=== PATIENT | male | born 1940 | race Caucasian/White ===

== ENCOUNTER 2020-09-01 07:28 | Outpatient (CLI) | payer OTHER, MEDICARE ==
[2020-09-01 08:19] LABS: Estimated GFR-MDRD - POC Greater than 90
== END 2020-09-01 07:29 | disposition home or self-care (01) ==
LOC: CSHNM 07:28
PROVIDERS: ATTEND Urology
DX: C61 Malignant neoplasm of prostate (principal); M19.90 Unspecified osteoarthritis, unspecified site; M47.819 Spondylosis without myelopathy or radiculopathy, site unspecified; R93.7 Abnormal findings on diagnostic imaging of other parts of musculoskeletal system; N32.89 Other specified disorders of bladder; Z90.49 Acquired absence of other specified parts of digestive tract; K57.30 Diverticulosis of large intestine without perforation or abscess without bleeding; K43.9 Ventral hernia without obstruction or gangrene
CPT/HCPCS: 74178; 78306; 82565; A9503

== ENCOUNTER 2022-04-13 10:15 | Outpatient (CLI) | payer OTHER | END 2022-04-13 10:16 | disposition home or self-care (01) | LOC: CSHCT 10:15 | PROVIDERS: ATTEND Urology | DX: R93.7 Abnormal findings on diagnostic imaging of other parts of musculoskeletal system (principal); M89.58 Osteolysis, other site | CPT/HCPCS: 71260; 82565 ==

== ENCOUNTER → 2022-08-08 | Emergency (ER) | payer OTHER, MEDICARE ==
[~2022-08-08] MED LIST: Ondansetron PF 4 MG/2 ML Vial ONE
[2022-08-08 14:36] LABS: #Basophils 0.1 10x3/uL (0.0-0.2); #Eosinphils 0.2 10x3/uL (0.0-0.5); #Monocytes 0.7 10x3/uL (0.0-1.1); #Neutrophils 6.4 10x3/uL (1.5-8.4); %Basophils 0.8 % (0.0-2.0); %Eosinophils 1.7 % (0.0-6.0); %Lymphocytes 19.3 % (18.0-47.0); %Monocytes 7.8 % (0.0-10.0); %Neutrophils 69.8 % (40.0-75.0); Hemoglobin 12.2 g/dL (13.5-17.5); Mean Corpuscular Hemoglobin 31.2 pg (27.0-33.0); Mean Corpuscular Volume 89.3 fl (81.2-95.1); Mean Platelet Volume 9.3 fl (7.4-10.4); Platelet Count 243 10x3/uL (150-450); RBC Distribution Width 12.5 % (11.5-14.5); Red Blood Cell (RBC) Count 3.91 10x6/uL (4.32-5.72); White Blood Cell (WBC) Count 9.1 10x3/uL (3.5-10.5)
[2022-08-08 14:43] LABS: ALT (SGPT) 21 U/L (8-55); AST (SGOT) 23 U/L (5-34); Albumin 3.9 g/dL (3.4-4.8); Alkaline Phosphatase 74 U/L (40-110); Anion Gap 14 mmol/L (10-20); BUN (Urea Nitrogen) 18 mg/dL (8.4-25.7); Bilirubin, Total 0.4 mg/dL (0.2-1.2); Calc. Creatinine Clearance 0 mL/min (70-130); Calcium 9.3 mg/dL (7.8-10.44); Carbon Dioxide 24 mmol/L (23-31); Chloride 100 mmol/L (98-107); Estimated GFR 88; Globulin 2.7 g/dL (2.4-3.5); Glucose 175 mg/dL (83-110); Potassium 4.3 mmol/L (3.5-5.1); Protein, Total 6.6 g/dL (5.8-8.1); Sodium 134 mmol/L (136-145)
== END ==
LOC: CSHERS 13:31
DX: S72.142A Displaced intertrochanteric fracture of left femur, initial encounter for closed fracture (principal); I10 Essential (primary) hypertension; J44.9 Chronic obstructive pulmonary disease, unspecified; E11.9 Type 2 diabetes mellitus without complications; W10.9XXA Fall (on) (from) unspecified stairs and steps, initial encounter; Z79.84 Long term (current) use of oral hypoglycemic drugs
CPT/HCPCS: 36415; 72170; 80053; 84153; 85025; 93005; 96374; J2405

== ENCOUNTER 2022-08-17 10:19 | Inpatient (IN) | payer OTHER ==
[2022-08-17 11:12] LABS: #Monocytes 1.2 10x3/uL (0.0-1.1); #Neutrophils 9.4 10x3/uL (1.5-8.4); %Basophils 0.2 % (0.0-2.0); %Eosinophils 0.2 % (0.0-6.0); %Lymphocytes 11.7 % (18.0-47.0); %Monocytes 10.2 % (0.0-10.0); %Neutrophils 77.2 % (40.0-75.0); Mean Corpuscular HGB CONC 33.6 g/dL (32.0-36.0); Mean Corpuscular Hemoglobin 31.1 pg (27.0-33.0); Mean Corpuscular Volume 92.7 fl (81.2-95.1); Mean Platelet Volume 9.4 fl (7.4-10.4); Platelet Count 412 10x3/uL (150-450); RBC Distribution Width 14.3 % (11.5-14.5); Red Blood Cell (RBC) Count 2.89 10x6/uL (4.32-5.72); White Blood Cell (WBC) Count 12.2 10x3/uL (3.5-10.5)
[2022-08-17] MEDS ORDERED: Piperacillin/Tazobactam 4.5 GM VIAL ONE (11:25)
[2022-08-17 11:52] LABS: Magnesium 2.2 mg/dL (1.6-2.6)
[2022-08-17 11:53] LABS: ALT (SGPT) 38 U/L (8-55); AST (SGOT) 71 U/L (5-34); Albumin 3.6 g/dL (3.4-4.8); Alkaline Phosphatase 82 U/L (40-110); Anion Gap 18 mmol/L (10-20); BUN (Urea Nitrogen) 50 mg/dL (8.4-25.7); Bilirubin, Total 1.4 mg/dL (0.2-1.2); Calc. Creatinine Clearance 0 mL/min (70-130); Calcium 9.3 mg/dL (7.8-10.44); Carbon Dioxide 22 mmol/L (23-31); Chloride 99 mmol/L (98-107); Estimated GFR 62; Globulin 3.1 g/dL (2.4-3.5); Glucose 142 mg/dL (83-110); Potassium 4.8 mmol/L (3.5-5.1); Protein, Total 6.7 g/dL (5.8-8.1); Sodium 134 mmol/L (136-145)
[2022-08-17 12:27] LABS: Bilirubin Neg (Negative); Blood, Urine Negative (Negative); Clarity Cloudy (Clear); Glucose, Urine (Dipstick) Normal (Negative); Ketone, Urine 5 mg/dL (Negative); Leukocyte 25 (Negative); Nitrite Negative (Negative); Protein, Urine (Dipstick) 15 mg/dl (Neg-Trace); Specific Gravity, Urine 1.015 (1.005-1.030)
[2022-08-17 12:28] LABS: SARS-CoV-2 NAA Rapid Test Not Detected (NotDetected)
[2022-08-17 13:23] LABS: Bacteria/HPF None Seen HPF (None Seen); Mucous/LPF 1+ LPF (<2+); RBC/HPF 0-3 HPF (0-3); Squamous Epithelial 0-3 HPF (0-3)
[2022-08-17] MEDS ORDERED: Lorazepam 2 MG/ML VIAL ONE (13:46)
[2022-08-17] MEDS ORDERED: Haloperidol Lactate 5 MG/ML VIAL ONE (14:05)
[2022-08-17] MEDS ORDERED: diphenhydrAMINE 50 MG/ML VIAL ONE (14:07)
[2022-08-17] MEDS ORDERED: Dextrose 5% in Water 1,000 ML IV PRN (18:41)
[2022-08-17] MEDS ORDERED: Dextrose 50% Abboject 50 ML SYRINGE SLOW IVP PRN (18:41)
[2022-08-17] MEDS ORDERED: Ondansetron PF 4 MG/2 ML Vial IVP PRN (19:25)
[2022-08-17] MEDS ORDERED: Guaifenesin DM 100-10/5 ML UDCUP PO PRN (19:25)
[2022-08-17] MEDS ORDERED: Senokot S 8.6-50 MG TAB PO PRN (19:25)
[2022-08-17] MEDS ORDERED: Ipratropium/Albuterol 3 ML NEB NEB PRN (19:26)
[2022-08-17] MEDS: Lidocaine 4% Patch TD SCH (20:40)
[2022-08-17] MEDS: Ascorbic Acid 500 mg Chewable Tablet PO SCH (20:40)
[2022-08-17] MEDS: Atorvastatin Calcium 20 MG TAB PO SCH (20:41)
[2022-08-17] MEDS: Tamsulosin HCl 0.4 MG CAP PO SCH (20:41)
[2022-08-17] MEDS ORDERED: Famotidine/PF 20 mg/2ml Vial SLOW IVP SCH (21:00)
[2022-08-17] MEDS ORDERED: Sodium Chloride 0.9% 1,000 ML IV SCH (21:00)
[2022-08-17] MEDS: Dorzolamide HCl 2% Ophth Soln 10 ml Bottle R EYE SCH (22:00)
[2022-08-17] MEDS ORDERED: Pantoprazole 40 MG VIAL ONE (22:20)
[2022-08-17] MEDS: Pantoprazole 40 MG VIAL IVP SCH (22:31)
[2022-08-18] MEDS ORDERED: Lorazepam 2 MG/ML VIAL ONE ×2 (02:31→09:52)
[2022-08-18] MEDS: Lorazepam 2 MG/ML VIAL SLOW IVP PRN ×2 (02:37→10:08)
[2022-08-18 04:13] LABS: #Monocytes 1.3 10x3/uL (0.0-1.1); #Neutrophils 10.2 10x3/uL (1.5-8.4); %Basophils 0.3 % (0.0-2.0); %Eosinophils 0.3 % (0.0-6.0); %Monocytes 10.4 % (0.0-10.0); %Neutrophils 79.4 % (40.0-75.0); Hemoglobin 8.2 g/dL (13.5-17.5); Mean Corpuscular HGB CONC 33.5 g/dL (32.0-36.0); Mean Corpuscular Hemoglobin 31.3 pg (27.0-33.0); Mean Corpuscular Volume 93.5 fl (81.2-95.1); Mean Platelet Volume 8.9 fl (7.4-10.4); Platelet Count 384 10x3/uL (150-450); RBC Distribution Width 14.3 % (11.5-14.5); Red Blood Cell (RBC) Count 2.62 10x6/uL (4.32-5.72); White Blood Cell (WBC) Count 12.9 10x3/uL (3.5-10.5)
[2022-08-18 04:27] LABS: Anion Gap 17 mmol/L (10-20); BUN (Urea Nitrogen) 30 mg/dL (8.4-25.7); Calc. Creatinine Clearance 0 mL/min (70-130); Calcium 9.1 mg/dL (7.8-10.44); Carbon Dioxide 21 mmol/L (23-31); Chloride 103 mmol/L (98-107); Estimated GFR 89; Glucose 139 mg/dL (83-110); Potassium 4.4 mmol/L (3.5-5.1); Sodium 137 mmol/L (136-145)
[2022-08-18 04:28] LABS: ALT (SGPT) 49 U/L (8-55); AST (SGOT) 99 U/L (5-34); Albumin 3.1 g/dL (3.4-4.8); Alkaline Phosphatase 80 U/L (40-110); Bilirubin, Direct 0.6 mg/dL (0.1-0.3); Bilirubin, Total 1.2 mg/dL (0.2-1.2); Protein, Total 5.8 g/dL (5.8-8.1)
[2022-08-18 04:45] LABS: CK (CPK) 4897 U/L (30-200)
[2022-08-18 04:54] LABS: Thyroid Stimulating Hormone 0.6928 uIU/mL (0.35-4.94)
[2022-08-18] MEDS ORDERED: Mometasone/Formoterol 200/5 60 PUFF INH ONE (08:30)
[2022-08-18] MEDS: Transdermal Patch Removal TOP SCH (08:38)
[2022-08-18] MEDS: Mometasone/Formoterol 200/5 60 PUFF INH SCH ×2 (09:17→20:05)
[2022-08-18] MEDS ORDERED: Pantoprazole 40 MG VIAL ONE (09:53)
[2022-08-18] MEDS: Dorzolamide HCl 2% Ophth Soln 10 ml Bottle R EYE SCH ×2 (10:06→16:46)
[2022-08-18] MEDS: Pantoprazole 40 MG VIAL IVP SCH ×2 (10:08→21:18)
[2022-08-18] MEDS ORDERED: Piperacillin/Tazobactam 3.375 GM VIAL ONE (10:27)
[2022-08-18] MEDS ORDERED: Piperacillin/Tazobactam 3.375 GM in Sodium Chloride 0.9% 100 ML IVPB SCH (10:30)
[2022-08-18] MEDS ORDERED: Piperacillin/Tazobactam 4.5 GM in Sodium Chloride 0.9% 100 ML IVPB SCH (12:00)
[2022-08-18 13:49] LABS: Vitamin B12 Greater than 2000 pg/mL (211-911)
[2022-08-18] MEDS: Piperacillin/Tazobactam 3.375 GM in Sodium Chloride 0.9% 100 ML IVPB SCH (13:52)
[2022-08-18 14:19] VITALS: BMI 21.9
[2022-08-18] MEDS: metFORMIN 500 MG TAB PO SCH (16:26)
[2022-08-18] MEDS: Ascorbic Acid 500 mg Chewable Tablet PO SCH ×2 (16:26→21:18)
[2022-08-18] MEDS: Amlodipine 5 MG TAB PO SCH (16:26)
[2022-08-18] MEDS: Aspirin 81 mg Enteric Coated Tablet PO SCH (16:26)
[2022-08-18] MEDS: Multivitamin W/ Minerals 1 TAB PO SCH (16:27)
[2022-08-18] MEDS: Cyanocobalamin (Vitamin B-12) 1,000 MCG TAB PO SCH (16:27)
[2022-08-18] MEDS: risperiDONE 0.5 MG TAB PO SCH (16:27)
[2022-08-18] MEDS: Lisinopril 20 MG TAB PO SCH (16:27)
[2022-08-18] MEDS: Cholecalciferol 1,000 UNITS (25 MCG) TAB PO SCH (16:27)
[2022-08-18] MEDS ORDERED: hydrALAZINE 20 MG/ML VIAL SLOW IVP PRN (21:01)
[2022-08-18] MEDS: Tamsulosin HCl 0.4 MG CAP PO SCH (21:18)
[2022-08-18] MEDS: Lidocaine 4% Patch TD SCH (21:18)
[2022-08-18] MEDS: Atorvastatin Calcium 20 MG TAB PO SCH (21:18)
[2022-08-19] MEDS: Piperacillin/Tazobactam 3.375 GM in Sodium Chloride 0.9% 100 ML IVPB SCH ×4 (00:11→21:57)
[2022-08-19 06:04] LABS: #Basophils 0.1 10x3/uL (0.0-0.2); #Eosinphils 0.2 10x3/uL (0.0-0.5); #Monocytes 1.3 10x3/uL (0.0-1.1); #Neutrophils 12.5 10x3/uL (1.5-8.4); %Basophils 0.4 % (0.0-2.0); %Lymphocytes 10.3 % (18.0-47.0); %Monocytes 8.2 % (0.0-10.0); %Neutrophils 79.5 % (40.0-75.0); Mean Corpuscular HGB CONC 33.1 g/dL (32.0-36.0); Mean Corpuscular Hemoglobin 30.6 pg (27.0-33.0); Mean Corpuscular Volume 92.5 fl (81.2-95.1); Mean Platelet Volume 8.6 fl (7.4-10.4); Platelet Count 408 10x3/uL (150-450); RBC Distribution Width 14.3 % (11.5-14.5); Red Blood Cell (RBC) Count 2.94 10x6/uL (4.32-5.72); White Blood Cell (WBC) Count 15.7 10x3/uL (3.5-10.5)
[2022-08-19 06:18] LABS: ALT (SGPT) 45 U/L (8-55); AST (SGOT) 66 U/L (5-34); Alkaline Phosphatase 79 U/L (40-110); Anion Gap 16 mmol/L (10-20); BUN (Urea Nitrogen) 17 mg/dL (8.4-25.7); Bilirubin, Total 1.4 mg/dL (0.2-1.2); Calc. Creatinine Clearance 79 mL/min (70-130); Calcium 8.8 mg/dL (7.8-10.44); Carbon Dioxide 22 mmol/L (23-31); Chloride 104 mmol/L (98-107); Estimated GFR 95; Globulin 2.6 g/dL (2.4-3.5); Glucose 127 mg/dL (83-110); Potassium 3.9 mmol/L (3.5-5.1); Protein, Total 5.6 g/dL (5.8-8.1); Sodium 138 mmol/L (136-145)
[2022-08-19] MEDS: Mometasone/Formoterol 200/5 60 PUFF INH SCH ×2 (06:55→20:55)
[2022-08-19] MEDS: metFORMIN 500 MG TAB PO SCH (08:41)
[2022-08-19] MEDS: Amlodipine 5 MG TAB PO SCH (08:41)
[2022-08-19] MEDS: Ascorbic Acid 500 mg Chewable Tablet PO SCH ×2 (08:41→20:41)
[2022-08-19] MEDS: Cyanocobalamin (Vitamin B-12) 1,000 MCG TAB PO SCH (08:42)
[2022-08-19] MEDS: Cholecalciferol 1,000 UNITS (25 MCG) TAB PO SCH (08:42)
[2022-08-19] MEDS: Lisinopril 20 MG TAB PO SCH (08:42)
[2022-08-19] MEDS: Aspirin 81 mg Enteric Coated Tablet PO SCH (08:42)
[2022-08-19] MEDS: risperiDONE 0.5 MG TAB PO SCH (08:43)
[2022-08-19] MEDS: Multivitamin W/ Minerals 1 TAB PO SCH (08:44)
[2022-08-19] MEDS ORDERED: Senokot S 8.6-50 MG TAB PO PRN (10:15)
[2022-08-19] MEDS: Transdermal Patch Removal TOP SCH (11:16)
[2022-08-19] MEDS: Pantoprazole 40 MG VIAL IVP SCH ×2 (12:03→20:42)
[2022-08-19] MEDS: Acetaminophen 325 MG TAB PO PRN (14:19)
[2022-08-19] MEDS: Lorazepam 2 MG/ML VIAL SLOW IVP PRN ×2 (14:29→21:55)
[2022-08-19] MEDS: Atorvastatin Calcium 20 MG TAB PO SCH (20:41)
[2022-08-19] MEDS: Lidocaine 4% Patch TD SCH (20:42)
[2022-08-19] MEDS: Tamsulosin HCl 0.4 MG CAP PO SCH (20:42)
[2022-08-20 05:31] LABS: #Basophils 0.1 10x3/uL (0.0-0.2); #Eosinphils 0.3 10x3/uL (0.0-0.5); #Monocytes 1.1 10x3/uL (0.0-1.1); #Neutrophils 9.9 10x3/uL (1.5-8.4); %Basophils 0.5 % (0.0-2.0); %Eosinophils 2.1 % (0.0-6.0); %Lymphocytes 12.6 % (18.0-47.0); %Monocytes 8.4 % (0.0-10.0); %Neutrophils 75.8 % (40.0-75.0); Hemoglobin 9.1 g/dL (13.5-17.5); Mean Corpuscular HGB CONC 33.2 g/dL (32.0-36.0); Mean Corpuscular Hemoglobin 30.5 pg (27.0-33.0); Mean Corpuscular Volume 91.9 fl (81.2-95.1); Mean Platelet Volume 8.8 fl (7.4-10.4); Platelet Count 407 10x3/uL (150-450); RBC Distribution Width 14.3 % (11.5-14.5); Red Blood Cell (RBC) Count 2.98 10x6/uL (4.32-5.72); White Blood Cell (WBC) Count 13.1 10x3/uL (3.5-10.5)
[2022-08-20 05:36] LABS: Anion Gap 15 mmol/L (10-20); BUN (Urea Nitrogen) 13 mg/dL (8.4-25.7); Calc. Creatinine Clearance 80 mL/min (70-130); Calcium 8.7 mg/dL (7.8-10.44); Carbon Dioxide 23 mmol/L (23-31); Chloride 104 mmol/L (98-107); Estimated GFR 95; Glucose 129 mg/dL (83-110); Potassium 3.6 mmol/L (3.5-5.1); Sodium 138 mmol/L (136-145)
[2022-08-20] MEDS: Mometasone/Formoterol 200/5 60 PUFF INH SCH ×2 (06:45→19:50)
[2022-08-20] MEDS: Pantoprazole 40 MG VIAL IVP SCH ×2 (10:01→20:20)
[2022-08-20] MEDS: Ascorbic Acid 500 mg Chewable Tablet PO SCH ×2 (10:02→20:20)
[2022-08-20] MEDS: risperiDONE 0.5 MG TAB PO SCH (10:02)
[2022-08-20] MEDS: Lisinopril 20 MG TAB PO SCH (10:02)
[2022-08-20] MEDS: metFORMIN 500 MG TAB PO SCH (10:03)
[2022-08-20] MEDS: Aspirin 81 mg Enteric Coated Tablet PO SCH (10:03)
[2022-08-20] MEDS: Amlodipine 5 MG TAB PO SCH (10:03)
[2022-08-20] MEDS: Multivitamin W/ Minerals 1 TAB PO SCH (10:03)
[2022-08-20] MEDS: Cholecalciferol 1,000 UNITS (25 MCG) TAB PO SCH (10:03)
[2022-08-20] MEDS: Transdermal Patch Removal TOP SCH (10:36)
[2022-08-20] MEDS: Piperacillin/Tazobactam 3.375 GM in Sodium Chloride 0.9% 100 ML IVPB SCH ×3 (12:27→22:46)
[2022-08-20] MEDS: Lorazepam 2 MG/ML VIAL SLOW IVP PRN (16:35)
[2022-08-20] MEDS ORDERED: Metoprolol Tartrate 5 MG/5 ML VIAL IVP SCH (20:00)
[2022-08-20] MEDS: Tamsulosin HCl 0.4 MG CAP PO SCH (20:20)
[2022-08-20] MEDS: Atorvastatin Calcium 20 MG TAB PO SCH (20:20)
[2022-08-20] MEDS: Lidocaine 4% Patch TD SCH (20:20)
[2022-08-20] MEDS ORDERED: ASCORBIC ACID 500 MG PO SCH (21:00)
[2022-08-20] MEDS ORDERED: Tamsulosin HCl 0.4 MG CAP PO SCH (21:00)
[2022-08-20] MEDS ORDERED: Atorvastatin Calcium 20 MG TAB PO SCH (21:00)
[2022-08-21] MEDS: Lorazepam 2 MG/ML VIAL SLOW IVP PRN (01:41)
[2022-08-21 04:56] LABS: #Basophils 0.1 10x3/uL (0.0-0.2); #Eosinphils 0.2 10x3/uL (0.0-0.5); #Neutrophils 11.2 10x3/uL (1.5-8.4); %Basophils 0.4 % (0.0-2.0); %Eosinophils 1.3 % (0.0-6.0); %Lymphocytes 11.7 % (18.0-47.0); %Monocytes 7.3 % (0.0-10.0); %Neutrophils 78.6 % (40.0-75.0); Hemoglobin 8.9 g/dL (13.5-17.5); Mean Corpuscular HGB CONC 33.5 g/dL (32.0-36.0); Mean Corpuscular Hemoglobin 30.6 pg (27.0-33.0); Mean Corpuscular Volume 91.4 fl (81.2-95.1); Mean Platelet Volume 8.9 fl (7.4-10.4); Platelet Count 436 10x3/uL (150-450); RBC Distribution Width 13.9 % (11.5-14.5); Red Blood Cell (RBC) Count 2.91 10x6/uL (4.32-5.72); White Blood Cell (WBC) Count 14.2 10x3/uL (3.5-10.5)
[2022-08-21 05:22] LABS: Anion Gap 17 mmol/L (10-20); BUN (Urea Nitrogen) 13 mg/dL (8.4-25.7); Calc. Creatinine Clearance 79 mL/min (70-130); Carbon Dioxide 22 mmol/L (23-31); Chloride 104 mmol/L (98-107); Estimated GFR 95; Glucose 132 mg/dL (83-110); Magnesium 1.3 mg/dL (1.6-2.6); Potassium 3.7 mmol/L (3.5-5.1); Sodium 139 mmol/L (136-145)
[2022-08-21] MEDS: Piperacillin/Tazobactam 3.375 GM in Sodium Chloride 0.9% 100 ML IVPB SCH ×3 (06:08→21:49)
[2022-08-21] MEDS: Mometasone/Formoterol 200/5 60 PUFF INH SCH ×2 (06:35→19:55)
[2022-08-21] MEDS ORDERED: Magnesium 2 GM/50 ML(in water) 2 GM in Premix Bag 1 BAG IVPB SCH (08:00)
[2022-08-21] MEDS ORDERED: metFORMIN 500 MG TAB PO SCH (09:00)
[2022-08-21] MEDS: Pantoprazole 40 MG VIAL IVP SCH ×2 (09:33→21:50)
[2022-08-21] MEDS: Cholecalciferol 1,000 UNITS (25 MCG) TAB PO SCH (09:34)
[2022-08-21] MEDS: Aspirin 81 mg Enteric Coated Tablet PO SCH (09:34)
[2022-08-21] MEDS: Multivitamin W/ Minerals 1 TAB PO SCH (09:34)
[2022-08-21] MEDS: Citalopram 20 MG TAB PO SCH (09:34)
[2022-08-21] MEDS: Ferrous Sulfate 325 MG TAB PO SCH (09:34)
[2022-08-21] MEDS: Ascorbic Acid 500 mg Chewable Tablet PO SCH ×2 (09:34→21:49)
[2022-08-21] MEDS: Amlodipine 5 MG TAB PO SCH (09:34)
[2022-08-21] MEDS: metFORMIN 500 MG TAB PO SCH (09:34)
[2022-08-21] MEDS: risperiDONE 0.5 MG TAB PO SCH (09:34)
[2022-08-21] MEDS: Lisinopril 20 MG TAB PO SCH (09:34)
[2022-08-21] MEDS: Transdermal Patch Removal TOP SCH (09:35)
[2022-08-21] MEDS: Atorvastatin Calcium 20 MG TAB PO SCH (21:49)
[2022-08-21] MEDS: Lidocaine 4% Patch TD SCH (21:50)
[2022-08-21] MEDS: Tamsulosin HCl 0.4 MG CAP PO SCH (21:52)
[2022-08-22] MEDS: Lorazepam 2 MG/ML VIAL SLOW IVP PRN (02:09)
[2022-08-22 04:47] LABS: Anion Gap 19 mmol/L (10-20); BUN (Urea Nitrogen) 14 mg/dL (8.4-25.7); Calc. Creatinine Clearance 72 mL/min (70-130); Calcium 9.1 mg/dL (7.8-10.44); Carbon Dioxide 20 mmol/L (23-31); Chloride 105 mmol/L (98-107); Estimated GFR 92; Glucose 133 mg/dL (83-110); Magnesium 1.5 mg/dL (1.6-2.6); Potassium 3.7 mmol/L (3.5-5.1); Sodium 140 mmol/L (136-145)
[2022-08-22] MEDS: Mometasone/Formoterol 200/5 60 PUFF INH SCH ×2 (06:30→19:41)
[2022-08-22] MEDS: Piperacillin/Tazobactam 3.375 GM in Sodium Chloride 0.9% 100 ML IVPB SCH ×3 (06:47→22:48)
[2022-08-22] MEDS: guaiFENesin ER 600 MG TAB PO SCH ×3 (06:47→19:32)
[2022-08-22] MEDS ORDERED: Magnesium 2 GM/50 ML(in water) 2 GM in Premix Bag 1 BAG IVPB SCH (09:45)
[2022-08-22] MEDS: Amlodipine 5 MG TAB PO SCH (09:46)
[2022-08-22] MEDS: Ferrous Sulfate 325 MG TAB PO SCH (09:46)
[2022-08-22] MEDS: Aspirin 81 mg Enteric Coated Tablet PO SCH (09:46)
[2022-08-22] MEDS: risperiDONE 0.5 MG TAB PO SCH (09:47)
[2022-08-22] MEDS: Ascorbic Acid 500 mg Chewable Tablet PO SCH ×2 (09:47→21:22)
[2022-08-22] MEDS: Cholecalciferol 1,000 UNITS (25 MCG) TAB PO SCH (09:47)
[2022-08-22] MEDS: Lisinopril 20 MG TAB PO SCH (09:47)
[2022-08-22] MEDS: Multivitamin W/ Minerals 1 TAB PO SCH (09:48)
[2022-08-22] MEDS: metFORMIN 500 MG TAB PO SCH (09:48)
[2022-08-22] MEDS: Citalopram 20 MG TAB PO SCH (09:48)
[2022-08-22] MEDS: Pantoprazole 40 MG VIAL IVP SCH ×2 (09:48→21:22)
[2022-08-22] MEDS: Transdermal Patch Removal TOP SCH (11:46)
[2022-08-22] MEDS ORDERED: Lorazepam 2 MG/ML VIAL SLOW IVP SCH (21:00)
[2022-08-22] MEDS: Lidocaine 4% Patch TD SCH (21:21)
[2022-08-22] MEDS: Atorvastatin Calcium 20 MG TAB PO SCH (21:22)
[2022-08-22] MEDS: Tamsulosin HCl 0.4 MG CAP PO SCH (21:22)
[2022-08-23 05:58] LABS: #Basophils 0.1 10x3/uL (0.0-0.2); #Eosinphils 0.2 10x3/uL (0.0-0.5); #Neutrophils 11.4 10x3/uL (1.5-8.4); %Basophils 0.6 % (0.0-2.0); %Eosinophils 1.2 % (0.0-6.0); %Lymphocytes 8.8 % (18.0-47.0); %Neutrophils 81.7 % (40.0-75.0); Mean Corpuscular Hemoglobin 30.8 pg (27.0-33.0); Mean Corpuscular Volume 93.5 fl (81.2-95.1); Mean Platelet Volume 8.8 fl (7.4-10.4); Platelet Count 405 10x3/uL (150-450); RBC Distribution Width 14.4 % (11.5-14.5); Red Blood Cell (RBC) Count 2.92 10x6/uL (4.32-5.72); White Blood Cell (WBC) Count 13.9 10x3/uL (3.5-10.5)
[2022-08-23 06:13] LABS: Anion Gap 18 mmol/L (10-20); BUN (Urea Nitrogen) 15 mg/dL (8.4-25.7); Calc. Creatinine Clearance 78 mL/min (70-130); Calcium 8.9 mg/dL (7.8-10.44); Carbon Dioxide 21 mmol/L (23-31); Chloride 107 mmol/L (98-107); Estimated GFR 95; Glucose 143 mg/dL (83-110); Potassium 3.5 mmol/L (3.5-5.1); Sodium 142 mmol/L (136-145)
[2022-08-23] MEDS: Mometasone/Formoterol 200/5 60 PUFF INH SCH ×2 (06:30→19:05)
[2022-08-23] MEDS: Piperacillin/Tazobactam 3.375 GM in Sodium Chloride 0.9% 100 ML IVPB SCH ×3 (06:38→21:33)
[2022-08-23] MEDS: guaiFENesin ER 600 MG TAB PO SCH ×2 (07:55→17:34)
[2022-08-23 09:25] LABS: Magnesium 1.6 mg/dL (1.6-2.6)
[2022-08-23] MEDS: Cholecalciferol 1,000 UNITS (25 MCG) TAB PO SCH (09:45)
[2022-08-23] MEDS: risperiDONE 0.5 MG TAB PO SCH (09:45)
[2022-08-23] MEDS: Ferrous Sulfate 325 MG TAB PO SCH (09:45)
[2022-08-23] MEDS: Multivitamin W/ Minerals 1 TAB PO SCH (09:45)
[2022-08-23] MEDS: Ascorbic Acid 500 mg Chewable Tablet PO SCH ×2 (09:45→21:33)
[2022-08-23] MEDS: Amlodipine 5 MG TAB PO SCH (09:45)
[2022-08-23] MEDS: metFORMIN 500 MG TAB PO SCH (09:45)
[2022-08-23] MEDS: Aspirin 81 mg Enteric Coated Tablet PO SCH (09:46)
[2022-08-23] MEDS: Lisinopril 20 MG TAB PO SCH (09:46)
[2022-08-23] MEDS: Pantoprazole 40 MG VIAL IVP SCH ×2 (09:46→21:49)
[2022-08-23] MEDS: Citalopram 20 MG TAB PO SCH (09:46)
[2022-08-23] MEDS: Transdermal Patch Removal TOP SCH (15:07)
[2022-08-23] MEDS: Tamsulosin HCl 0.4 MG CAP PO SCH (21:33)
[2022-08-23] MEDS: Gabapentin 100 MG CAP PO SCH (21:33)
[2022-08-23] MEDS: Atorvastatin Calcium 20 MG TAB PO SCH (21:33)
[2022-08-23] MEDS: Acetaminophen 325 MG TAB PO PRN (21:34)
[2022-08-23] MEDS: Lidocaine 4% Patch TD SCH (21:48)
[2022-08-24] MEDS: Piperacillin/Tazobactam 3.375 GM in Sodium Chloride 0.9% 100 ML IVPB SCH ×2 (05:45→15:09)
[2022-08-24] MEDS: guaiFENesin ER 600 MG TAB PO SCH ×2 (05:45→17:26)
[2022-08-24] MEDS: Mometasone/Formoterol 200/5 60 PUFF INH SCH ×2 (06:30→19:43)
[2022-08-24 08:17] LABS: #Basophils 0.1 10x3/uL (0.0-0.2); #Eosinphils 0.3 10x3/uL (0.0-0.5); #Monocytes 0.8 10x3/uL (0.0-1.1); #Neutrophils 8.5 10x3/uL (1.5-8.4); %Basophils 0.7 % (0.0-2.0); %Eosinophils 2.3 % (0.0-6.0); %Lymphocytes 13.1 % (18.0-47.0); %Monocytes 7.3 % (0.0-10.0); %Neutrophils 76.1 % (40.0-75.0); Hemoglobin 9.2 g/dL (13.5-17.5); Mean Corpuscular HGB CONC 32.5 g/dL (32.0-36.0); Mean Corpuscular Hemoglobin 30.1 pg (27.0-33.0); Mean Corpuscular Volume 92.5 fl (81.2-95.1); Mean Platelet Volume 8.9 fl (7.4-10.4); Platelet Count 415 10x3/uL (150-450); RBC Distribution Width 14.5 % (11.5-14.5); Red Blood Cell (RBC) Count 3.06 10x6/uL (4.32-5.72); White Blood Cell (WBC) Count 11.2 10x3/uL (3.5-10.5)
[2022-08-24 08:37] LABS: Anion Gap 17 mmol/L (10-20); BUN (Urea Nitrogen) 15 mg/dL (8.4-25.7); Calc. Creatinine Clearance 81 mL/min (70-130); Calcium 8.8 mg/dL (7.8-10.44); Carbon Dioxide 22 mmol/L (23-31); Chloride 106 mmol/L (98-107); Estimated GFR 96; Glucose 133 mg/dL (83-110); Potassium 3.5 mmol/L (3.5-5.1); Sodium 141 mmol/L (136-145)
[2022-08-24] MEDS: Amlodipine 5 MG TAB PO SCH (09:50)
[2022-08-24] MEDS: Ferrous Sulfate 325 MG TAB PO SCH (09:50)
[2022-08-24] MEDS: metFORMIN 500 MG TAB PO SCH (09:50)
[2022-08-24] MEDS: Cholecalciferol 1,000 UNITS (25 MCG) TAB PO SCH (09:50)
[2022-08-24] MEDS: risperiDONE 0.5 MG TAB PO SCH (09:50)
[2022-08-24] MEDS: Ascorbic Acid 500 mg Chewable Tablet PO SCH ×2 (09:50→20:12)
[2022-08-24] MEDS: Multivitamin W/ Minerals 1 TAB PO SCH (09:50)
[2022-08-24] MEDS: Lisinopril 20 MG TAB PO SCH (09:50)
[2022-08-24] MEDS: Citalopram 20 MG TAB PO SCH (09:50)
[2022-08-24] MEDS: Aspirin 81 mg Enteric Coated Tablet PO SCH (09:50)
[2022-08-24] MEDS: Pantoprazole 40 MG VIAL IVP SCH ×2 (09:51→20:13)
[2022-08-24] MEDS: Transdermal Patch Removal TOP SCH (09:51)
[2022-08-24] MEDS: Acetaminophen 325 MG TAB PO PRN ×2 (17:04→20:21)
[2022-08-24] MEDS: Lorazepam 2 MG/ML VIAL SLOW IVP PRN (17:20)
[2022-08-24] MEDS: Tamsulosin HCl 0.4 MG CAP PO SCH (20:12)
[2022-08-24] MEDS: Gabapentin 100 MG CAP PO SCH (20:12)
[2022-08-24] MEDS: Atorvastatin Calcium 20 MG TAB PO SCH (20:12)
[2022-08-24] MEDS: Lidocaine 4% Patch TD SCH (20:13)
[2022-08-25] MEDS ORDERED: Amiodarone 150 MG in Dextrose 5% in Water 100 ML IVPB SCH (02:15)
[2022-08-25 02:30] LABS: Anion Gap 13 mmol/L (10-20); BUN (Urea Nitrogen) 16 mg/dL (8.4-25.7); Calc. Creatinine Clearance 80 mL/min (70-130); Calcium 8.3 mg/dL (7.8-10.44); Carbon Dioxide 25 mmol/L (23-31); Chloride 107 mmol/L (98-107); Estimated GFR 95; Glucose 135 mg/dL (83-110); Magnesium 1.4 mg/dL (1.6-2.6); Potassium 3.5 mmol/L (3.5-5.1); Sodium 141 mmol/L (136-145)
[2022-08-25 02:36] LABS: Troponin I 0.068 ng/mL (< 0.028)
[2022-08-25 02:38] LABS: #Basophils 0.1 10x3/uL (0.0-0.2); #Eosinphils 0.3 10x3/uL (0.0-0.5); #Monocytes 0.6 10x3/uL (0.0-1.1); #Neutrophils 6.1 10x3/uL (1.5-8.4); %Basophils 0.8 % (0.0-2.0); %Lymphocytes 16.1 % (18.0-47.0); %Monocytes 6.9 % (0.0-10.0); %Neutrophils 72.4 % (40.0-75.0); Hemoglobin 8.5 g/dL (13.5-17.5); Mean Corpuscular HGB CONC 32.7 g/dL (32.0-36.0); Mean Corpuscular Hemoglobin 29.9 pg (27.0-33.0); Mean Corpuscular Volume 91.5 fl (81.2-95.1); Mean Platelet Volume 8.8 fl (7.4-10.4); Platelet Count 395 10x3/uL (150-450); RBC Distribution Width 14.4 % (11.5-14.5); Red Blood Cell (RBC) Count 2.84 10x6/uL (4.32-5.72); White Blood Cell (WBC) Count 8.5 10x3/uL (3.5-10.5)
[2022-08-25] MEDS: Amiodarone In Dextrose 360 MG in Premix Bag 1 BAG IVPB SCH ×2 (02:39→08:54)
[2022-08-25] MEDS ORDERED: Magnesium 2 GM/50 ML(in water) 2 GM in Premix Bag 1 BAG IVPB SCH (04:45)
[2022-08-25] MEDS ORDERED: Potassium Chloride 20 MEQ TAB PO SCH (04:45)
[2022-08-25] MEDS: guaiFENesin ER 600 MG TAB PO SCH ×2 (05:15→18:57)
[2022-08-25 05:35] LABS: Troponin I 0.073 ng/mL (< 0.028)
[2022-08-25] MEDS: Mometasone/Formoterol 200/5 60 PUFF INH SCH ×2 (07:30→19:10)
[2022-08-25] MEDS: Amlodipine 5 MG TAB PO SCH (11:30)
[2022-08-25] MEDS: Ascorbic Acid 500 mg Chewable Tablet PO SCH ×2 (11:31→22:13)
[2022-08-25] MEDS: Multivitamin W/ Minerals 1 TAB PO SCH (11:31)
[2022-08-25] MEDS: Aspirin Chewable 81 MG TAB PO SCH (11:31)
[2022-08-25] MEDS: Lisinopril 20 MG TAB PO SCH (11:31)
[2022-08-25] MEDS: Ferrous Sulfate 325 MG TAB PO SCH (11:31)
[2022-08-25] MEDS: Cholecalciferol 1,000 UNITS (25 MCG) TAB PO SCH (11:32)
[2022-08-25] MEDS: Citalopram 20 MG TAB PO SCH (11:32)
[2022-08-25] MEDS: Pantoprazole 40 MG VIAL IVP SCH (11:32)
[2022-08-25] MEDS: metFORMIN 500 MG TAB PO SCH (11:32)
[2022-08-25] MEDS: risperiDONE 0.5 MG TAB PO SCH (11:44)
[2022-08-25] MEDS: Transdermal Patch Removal TOP SCH (12:16)
[2022-08-25 12:25] LABS: Magnesium 1.7 mg/dL (1.6-2.6)
[2022-08-25] MEDS: Magnesium 2 GM/50 ML(in water) 2 GM in Premix Bag 1 BAG IVPB SCH ×2 (18:27→18:28)
[2022-08-25] MEDS: Lidocaine 4% Patch TD SCH (22:12)
[2022-08-25] MEDS: Pantoprazole 40 MG VIAL IVPB SCH (22:12)
[2022-08-25] MEDS: Atorvastatin Calcium 20 MG TAB PO SCH (22:13)
[2022-08-25] MEDS: Tamsulosin HCl 0.4 MG CAP PO SCH ×2 (22:13)
[2022-08-25] MEDS: Gabapentin 100 MG CAP PO SCH (22:14)
[2022-08-25] MEDS: Lorazepam 2 MG/ML VIAL SLOW IVP PRN (22:39)
[2022-08-26 04:32] LABS: Hemoglobin 9.2 g/dL (13.5-17.5); Mean Corpuscular HGB CONC 31.8 g/dL (32.0-36.0); Mean Corpuscular Hemoglobin 30.2 pg (27.0-33.0); Mean Corpuscular Volume 94.8 fl (81.2-95.1); Mean Platelet Volume 9.2 fl (7.4-10.4); Platelet Count 420 10x3/uL (150-450); RBC Distribution Width 14.4 % (11.5-14.5); Red Blood Cell (RBC) Count 3.05 10x6/uL (4.32-5.72); White Blood Cell (WBC) Count 9.9 10x3/uL (3.5-10.5)
[2022-08-26 04:44] LABS: Anion Gap 13 mmol/L (10-20); BUN (Urea Nitrogen) 13 mg/dL (8.4-25.7); Calc. Creatinine Clearance 83 mL/min (70-130); Calcium 8.6 mg/dL (7.8-10.44); Carbon Dioxide 25 mmol/L (23-31); Chloride 106 mmol/L (98-107); Estimated GFR 96; Glucose 145 mg/dL (83-110); Magnesium 2.1 mg/dL (1.6-2.6); Potassium 3.7 mmol/L (3.5-5.1); Sodium 140 mmol/L (136-145)
[2022-08-26] MEDS: guaiFENesin ER 600 MG TAB PO SCH ×2 (06:49→19:57)
[2022-08-26] MEDS: Mometasone/Formoterol 200/5 60 PUFF INH SCH ×2 (08:05→19:29)
[2022-08-26] MEDS: Multivitamin W/ Minerals 1 TAB PO SCH (10:00)
[2022-08-26] MEDS: Aspirin Chewable 81 MG TAB PO SCH (10:00)
[2022-08-26] MEDS: Citalopram 20 MG TAB PO SCH (10:01)
[2022-08-26] MEDS: Amlodipine 5 MG TAB PO SCH (10:01)
[2022-08-26] MEDS: risperiDONE 0.5 MG TAB PO SCH (10:01)
[2022-08-26] MEDS: Cholecalciferol 1,000 UNITS (25 MCG) TAB PO SCH (10:02)
[2022-08-26] MEDS: Amiodarone 200 MG TAB PO SCH ×2 (10:02→22:49)
[2022-08-26] MEDS: Ferrous Sulfate 325 MG TAB PO SCH (10:02)
[2022-08-26] MEDS: metFORMIN 500 MG TAB PO SCH (10:02)
[2022-08-26] MEDS: Lisinopril 20 MG TAB PO SCH (10:02)
[2022-08-26] MEDS: Ascorbic Acid 500 mg Chewable Tablet PO SCH ×2 (10:02→22:49)
[2022-08-26] MEDS: Pantoprazole 40 MG VIAL IVPB SCH ×2 (10:03→22:50)
[2022-08-26] MEDS: Transdermal Patch Removal TOP SCH (10:03)
[2022-08-26] MEDS: Sodium Chloride 0.9% 1,000 ML IV SCH (15:03)
[2022-08-26 15:20] LABS: Magnesium 1.7 mg/dL (1.6-2.6)
[2022-08-26] MEDS: Atorvastatin Calcium 20 MG TAB PO SCH (22:49)
[2022-08-26] MEDS: Tamsulosin HCl 0.4 MG CAP PO SCH (22:49)
[2022-08-26] MEDS: Gabapentin 100 MG CAP PO SCH (22:49)
[2022-08-26] MEDS: Lidocaine 4% Patch TD SCH (22:50)
[2022-08-26] MEDS: Lorazepam 2 MG/ML VIAL SLOW IVP PRN (23:44)
[2022-08-27] MEDS: Sodium Chloride 0.9% 1,000 ML IV SCH ×2 (04:18→17:14)
[2022-08-27 05:22] LABS: Anion Gap 12 mmol/L (10-20); BUN (Urea Nitrogen) 10 mg/dL (8.4-25.7); Calc. Creatinine Clearance 83 mL/min (70-130); Calcium 8.3 mg/dL (7.8-10.44); Carbon Dioxide 25 mmol/L (23-31); Chloride 105 mmol/L (98-107); Estimated GFR 96; Glucose 138 mg/dL (83-110); Potassium 3.5 mmol/L (3.5-5.1); Sodium 138 mmol/L (136-145)
[2022-08-27] MEDS: guaiFENesin ER 600 MG TAB PO SCH (06:27)
[2022-08-27] MEDS: Mometasone/Formoterol 200/5 60 PUFF INH SCH ×2 (08:50→19:14)
[2022-08-27] MEDS: Multivitamin W/ Minerals 1 TAB PO SCH (09:18)
[2022-08-27] MEDS: Ferrous Sulfate 325 MG TAB PO SCH (09:18)
[2022-08-27] MEDS: Amlodipine 5 MG TAB PO SCH (09:18)
[2022-08-27] MEDS: risperiDONE 0.5 MG TAB PO SCH (09:18)
[2022-08-27] MEDS: Citalopram 20 MG TAB PO SCH (09:19)
[2022-08-27] MEDS: Aspirin Chewable 81 MG TAB PO SCH (09:19)
[2022-08-27] MEDS: metFORMIN 500 MG TAB PO SCH (09:19)
[2022-08-27] MEDS: Ascorbic Acid 500 mg Chewable Tablet PO SCH ×2 (09:19→22:39)
[2022-08-27] MEDS: Amiodarone 200 MG TAB PO SCH ×2 (09:19→22:40)
[2022-08-27] MEDS: Lisinopril 20 MG TAB PO SCH (09:19)
[2022-08-27] MEDS: Cholecalciferol 1,000 UNITS (25 MCG) TAB PO SCH (09:19)
[2022-08-27] MEDS: Pantoprazole 40 MG VIAL IVPB SCH ×2 (09:22→22:39)
[2022-08-27] MEDS: Transdermal Patch Removal TOP SCH (09:31)
[2022-08-27] MEDS: Lorazepam 2 MG/ML VIAL SLOW IVP PRN ×2 (15:35→22:43)
[2022-08-27] MEDS: Lidocaine 4% Patch TD SCH (22:39)
[2022-08-27] MEDS: GUAIFENESIN SF SOLN 200 MG/10 ML UDCUP PO SCH (22:39)
[2022-08-27] MEDS: Gabapentin 100 MG CAP PO SCH (22:39)
[2022-08-27] MEDS: Atorvastatin Calcium 20 MG TAB PO SCH (22:40)
[2022-08-27] MEDS: Tamsulosin HCl 0.4 MG CAP PO SCH (22:40)
[2022-08-28 04:58] LABS: Anion Gap 15 mmol/L (10-20); BUN (Urea Nitrogen) 8 mg/dL (8.4-25.7); Calc. Creatinine Clearance 83 mL/min (70-130); Calcium 8.5 mg/dL (7.8-10.44); Carbon Dioxide 20 mmol/L (23-31); Chloride 106 mmol/L (98-107); Estimated GFR 96; Glucose 147 mg/dL (83-110); Potassium 3.7 mmol/L (3.5-5.1); Sodium 137 mmol/L (136-145)
[2022-08-28] MEDS: Sodium Chloride 0.9% 1,000 ML IV SCH (05:30)
[2022-08-28] MEDS: Mometasone/Formoterol 200/5 60 PUFF INH SCH (06:40)
[2022-08-28 08:37] LABS: Magnesium 1.3 mg/dL (1.6-2.6)
[2022-08-28] MEDS: Aspirin Chewable 81 MG TAB PO SCH (09:37)
[2022-08-28] MEDS: GUAIFENESIN SF SOLN 200 MG/10 ML UDCUP PO SCH (09:37)
[2022-08-28] MEDS: Ferrous Sulfate 325 MG TAB PO SCH (09:37)
[2022-08-28] MEDS: Amiodarone 200 MG TAB PO SCH (09:38)
[2022-08-28] MEDS: risperiDONE 0.5 MG TAB PO SCH (09:39)
[2022-08-28] MEDS: Ascorbic Acid 500 mg Chewable Tablet PO SCH (09:39)
[2022-08-28] MEDS: Cholecalciferol 1,000 UNITS (25 MCG) TAB PO SCH (09:39)
[2022-08-28] MEDS: Citalopram 20 MG TAB PO SCH (09:39)
[2022-08-28] MEDS: Amlodipine 5 MG TAB PO SCH (09:39)
[2022-08-28] MEDS: Lisinopril 20 MG TAB PO SCH (09:39)
[2022-08-28] MEDS: metFORMIN 500 MG TAB PO SCH (09:39)
[2022-08-28] MEDS: Multivitamin W/ Minerals 1 TAB PO SCH (09:39)
[2022-08-28] MEDS: Pantoprazole 40 MG VIAL IVPB SCH (09:45)
[2022-08-28] MEDS: Transdermal Patch Removal TOP SCH (09:52)
[2022-08-28] MEDS ORDERED: Magnesium 2 GM/50 ML(in water) 2 GM in Premix Bag 1 BAG IVPB SCH (13:00)
[2022-08-28 16:22] VITALS: BP 164/70; TEMP 98.4
== END 2022-08-28 17:30 | DRG 71 ==
LOC: CSHERS 10:19 → INTOOBSV 19:39 → CSHERHOLD 19:39 → CSHTELE 08-18 13:15 → OBSVTOIN 08-19 11:22
PROVIDERS: ADMIT Student in an Organized Health Care Education/Training Program; ATTEND Internal Medicine
DX: G93.49 Other encephalopathy (principal); F05 Delirium due to known physiological condition; F23 Brief psychotic disorder; M62.82 Rhabdomyolysis; I25.10 Atherosclerotic heart disease of native coronary artery without angina pectoris; E78.5 Hyperlipidemia, unspecified; J44.9 Chronic obstructive pulmonary disease, unspecified; E11.9 Type 2 diabetes mellitus without complications; N40.0 Benign prostatic hyperplasia without lower urinary tract symptoms; F03.90 Unspecified dementia, unspecified severity, without behavioral disturbance, psychotic disturbance, mood disturbance, and anxiety; F41.9 Anxiety disorder, unspecified; F32.A Depression, unspecified; Z66 Do not resuscitate; R29.6 Repeated falls; E87.6 Hypokalemia; I10 Essential (primary) hypertension; D64.9 Anemia, unspecified; R00.0 Tachycardia, unspecified; E83.42 Hypomagnesemia; E86.0 Dehydration; R31.9 Hematuria, unspecified; R53.81 Other malaise; Z98.890 Other specified postprocedural states; Z95.1 Presence of aortocoronary bypass graft; Z87.891 Personal history of nicotine dependence; Z79.82 Long term (current) use of aspirin; Z79.899 Other long term (current) drug therapy; Z79.84 Long term (current) use of oral hypoglycemic drugs; Z79.51 Long term (current) use of inhaled steroids; Z78.1 Physical restraint status; I25.2 Old myocardial infarction; Z90.49 Acquired absence of other specified parts of digestive tract; Z98.49 Cataract extraction status, unspecified eye; Z20.822 Contact with and (suspected) exposure to COVID-19
CPT/HCPCS: 36415; 36416; 70450; 71045; 80048; 80053; 80076; 81003; 81015; 82274; 82550; 82607; 83605; 83735; 84443; 84484; 85025; 85027; 87040; 87086; 93005; 93010; 93306; 94640; 94664; 94760; 94762; 96361; 96365; 96366; 96372; 96375; 96376; 97139; C9113; G0378; J0282; J0283; J0360; J1200; J1630; J1650; J2060; J2405; J2543; J3475; J3490; J7050; J7070; J7620

== ENCOUNTER 2022-09-04 17:19 | Inpatient (IN) | payer MEDICARE, OTHER ==
[2022-09-04 18:02] LABS: #Basophils 0.1 10x3/uL (0.0-0.2); #Eosinphils 0.1 10x3/uL (0.0-0.5); #Monocytes 1.1 10x3/uL (0.0-1.1); #Neutrophils 14.1 10x3/uL (1.5-8.4); %Basophils 0.4 % (0.0-2.0); %Eosinophils 0.6 % (0.0-6.0); %Monocytes 6.9 % (0.0-10.0); %Neutrophils 88.7 % (40.0-75.0); Mean Corpuscular HGB CONC 33.3 g/dL (32.0-36.0); Mean Corpuscular Hemoglobin 30.3 pg (27.0-33.0); Mean Corpuscular Volume 90.9 fl (81.2-95.1); Mean Platelet Volume 9.2 fl (7.4-10.4); Platelet Count 491 10x3/uL (150-450); RBC Distribution Width 14.9 % (11.5-14.5); Red Blood Cell (RBC) Count 3.63 10x6/uL (4.32-5.72); White Blood Cell (WBC) Count 15.9 10x3/uL (3.5-10.5)
[2022-09-04 18:03] LABS: INR-International Normal Ratio 1.1; PTT 30.3 sec (22.0-33.0); Prothrombin Time 11.6 sec (9.5-12.1)
[2022-09-04 18:04] LABS: ALT (SGPT) 17 U/L (8-55); AST (SGOT) 19 U/L (5-34); Albumin 3.6 g/dL (3.4-4.8); Alkaline Phosphatase 120 U/L (40-110); Anion Gap 21 mmol/L (10-20); BUN (Urea Nitrogen) 20 mg/dL (8.4-25.7); Bilirubin, Total 0.8 mg/dL (0.2-1.2); Calc. Creatinine Clearance 0 mL/min (70-130); Calcium 9.2 mg/dL (7.8-10.44); Carbon Dioxide 20 mmol/L (23-31); Chloride 103 mmol/L (98-107); Estimated GFR 89; Globulin 2.5 g/dL (2.4-3.5); Glucose 149 mg/dL (83-110); Potassium 4.2 mmol/L (3.5-5.1); Protein, Total 6.1 g/dL (5.8-8.1); Sodium 140 mmol/L (136-145)
[2022-09-04] MEDS ORDERED: Acetaminophen 650 MG Suppository ONE (18:09)
[2022-09-04 18:13] LABS: Actual Bicarbonate (HCO3a) 18.1 mEq/L (22-28); CO2 Tension 31.4 mmHg (35.0-45.0); Calcium, Ionized (arterial) 1.21 mmol/L (1.12-1.30); Carboxyhemoglobin (COHb) 0.8 gm% (0.0-3.0); Hematocrit-ABG 34 % (42.0-52.0); Hemoglobin (Hb) 11.5 g/dL (14.0-18.0); O2 Tension (PaO2), arterial 63.4 mmHg (> 60.0); Potassium - ABG Lab 3.89 mmol/L (3.70-5.30); Puncture Site LBA; pH, Arterial 7.379 (7.35-7.45)
[2022-09-04 18:27] LABS: Bilirubin Neg (Negative); Blood, Urine 150 (Negative); Clarity Cloudy (Clear); Glucose, Urine (Dipstick) Normal (Negative); Ketone, Urine 150 mg/dL (Negative); Leukocyte 500 (Negative); Nitrite Negative (Negative); Protein, Urine (Dipstick) 100 mg/dl (Neg-Trace); Specific Gravity, Urine 1.015 (1.005-1.030); pH, Urine 6.5 (5.0-9.0)
[2022-09-04 18:35] LABS: Bacteria/HPF 4+ HPF (None Seen); Mucous/LPF 2+ LPF (<2+); RBC/HPF 0-3 HPF (0-3); Squamous Epithelial 0-3 HPF (0-3); Transitional Epithelial 0-3 HPF (None Seen); WBC/HPF Greater than 50 HPF (0-3)
[2022-09-04] MEDS ORDERED: Vancomycin 1 GM VIAL ONE (19:00)
[2022-09-04] MEDS ORDERED: cefTRIAXone (ROCEPHIN) 2 GM VIAL ONE (19:00)
[2022-09-04] MEDS ORDERED: Azithromycin 500 MG VIAL ONE (19:00)
[2022-09-04 19:09] LABS: SARS-CoV-2 NAA Rapid Test Not Detected (NotDetected)
[2022-09-04] MEDS ORDERED: VANCOMYCIN IVPB SCH (20:30)
[2022-09-04] MEDS ORDERED: Communication Order-Pharmacy FS PRN (20:30)
[2022-09-04] MEDS ORDERED: Acetaminophen 650 MG Suppository PR PRN (20:34)
[2022-09-04] MEDS ORDERED: Dextrose 50% Abboject 50 ML SYRINGE SLOW IVP PRN (20:45)
[2022-09-04] MEDS ORDERED: HumaLOG 300 UNITS/3 ML VIAL SC PRN (20:45)
[2022-09-04] MEDS ORDERED: Dextrose 5% in Water 1,000 ML IV PRN (20:45)
[2022-09-04 20:56] LABS: Magnesium 1.3 mg/dL (1.6-2.6)
[2022-09-04] MEDS: Sodium Chloride 0.9% 1,000 ML IV SCH (22:28)
[2022-09-04] MEDS ORDERED: Pantoprazole 40 MG VIAL IVP SCH (22:30)
[2022-09-04] MEDS ORDERED: Lactated Ringer's 1,000 ML IV SCH (22:30)
[2022-09-04] MEDS: Cefepime 2 GM in Sodium Chloride 0.9% 100 ML IVPB SCH (22:43)
[2022-09-04] MEDS ORDERED: Cefepime 2 GM VIAL ONE (22:43)
[2022-09-04 22:59] LABS: Hemoglobin 9.2 g/dL (13.5-17.5)
[2022-09-04 23:07] VITALS: BMI 21.1
[2022-09-05] MEDS: Budesonide 0.5 MG/2 ML NEB NEB SCH ×4 (00:36→21:20)
[2022-09-05] MEDS: Ipratropium/Albuterol 3 ML NEB NEB SCH ×4 (00:54→20:08)
[2022-09-05] MEDS ORDERED: Magnesium 2 GM/50 ML(in water) 2 GM in Premix Bag 1 BAG IVPB SCH ×3 (03:00→16:00)
[2022-09-05 06:04] LABS: #Basophils 0.1 10x3/uL (0.0-0.2); #Eosinphils 0.1 10x3/uL (0.0-0.5); #Monocytes 1.1 10x3/uL (0.0-1.1); #Neutrophils 10.3 10x3/uL (1.5-8.4); %Basophils 0.5 % (0.0-2.0); %Eosinophils 0.4 % (0.0-6.0); %Monocytes 8.3 % (0.0-10.0); %Neutrophils 81.5 % (40.0-75.0); Hemoglobin 8.6 g/dL (13.5-17.5); Mean Corpuscular HGB CONC 32.8 g/dL (32.0-36.0); Mean Corpuscular Hemoglobin 30.2 pg (27.0-33.0); Mean Corpuscular Volume 91.9 fl (81.2-95.1); Mean Platelet Volume 9.3 fl (7.4-10.4); Platelet Count 387 10x3/uL (150-450); RBC Distribution Width 14.9 % (11.5-14.5); Red Blood Cell (RBC) Count 2.85 10x6/uL (4.32-5.72); White Blood Cell (WBC) Count 12.6 10x3/uL (3.5-10.5)
[2022-09-05 06:24] LABS: Anion Gap 15 mmol/L (10-20); BUN (Urea Nitrogen) 16 mg/dL (8.4-25.7); Calc. Creatinine Clearance 68 mL/min (70-130); Calcium 8.8 mg/dL (7.8-10.44); Carbon Dioxide 18 mmol/L (23-31); Chloride 109 mmol/L (98-107); Estimated GFR 94; Glucose 120 mg/dL (83-110); Potassium 3.6 mmol/L (3.5-5.1); Sodium 138 mmol/L (136-145)
[2022-09-05] MEDS ORDERED: Vancomycin HCl 750 MG in Sodium Chloride 0.9% 250 ML 250 ML IVPB SCH ×3 (08:00→21:00)
[2022-09-05] MEDS ORDERED: Electrolyte Replacement Protocol 1 EACH FS SCH (08:15)
[2022-09-05 08:57] LABS: Phosphorus 2.2 mg/dL (2.3-4.7)
[2022-09-05] MEDS ORDERED: Aspirin 300 MG Suppository PR SCH (09:00)
[2022-09-05] MEDS ORDERED: Ciprofloxacin 0.3% Ophth Soln 2.5 ml Bottle EA EYE SCH (09:00)
[2022-09-05] MEDS: Sodium Chloride 0.9% 1,000 ML IV SCH (10:52)
[2022-09-05] MEDS: Pantoprazole 40 MG VIAL IVP SCH ×2 (10:55→21:37)
[2022-09-05] MEDS: Lactated Ringer's 1,000 ML IV SCH ×2 (11:11→21:35)
[2022-09-05] MEDS: risperiDONE 0.5 MG TAB PO SCH (11:11)
[2022-09-05] MEDS: Cefepime 2 GM in Sodium Chloride 0.9% 100 ML IVPB SCH (12:10)
[2022-09-05 14:25] LABS: Hemoglobin 8.9 g/dL (13.5-17.5); Platelet Count 387 10x3/uL (150-450)
[2022-09-05 14:46] LABS: Magnesium 1.5 mg/dL (1.6-2.6)
[2022-09-05] MEDS: QUEtiapine 25 MG TAB PO SCH (21:40)
[2022-09-05] MEDS: Amiodarone 200 MG TAB PO SCH (21:40)
[2022-09-05] MEDS: Tamsulosin HCl 0.4 MG CAP PO SCH (21:40)
[2022-09-05 22:33] LABS: Hemoglobin 8.1 g/dL (13.5-17.5)
[2022-09-05 22:34] LABS: Platelet Count 360 10x3/uL (150-450)
[2022-09-06] MEDS: Cefepime 2 GM in Sodium Chloride 0.9% 100 ML IVPB SCH ×2 (00:08→11:25)
[2022-09-06] MEDS: Ipratropium/Albuterol 3 ML NEB NEB SCH ×4 (00:10→19:50)
[2022-09-06 05:29] LABS: Hemoglobin 8.2 g/dL (13.5-17.5); Platelet Count 337 10x3/uL (150-450)
[2022-09-06 05:50] LABS: Magnesium 1.5 mg/dL (1.6-2.6)
[2022-09-06] MEDS ORDERED: Magnesium 2 GM/50 ML(in water) 2 GM in Premix Bag 1 BAG IVPB SCH (08:00)
[2022-09-06 08:47] LABS: Vancomycin, Trough 7.6 ug/mL
[2022-09-06] MEDS: risperiDONE 0.5 MG TAB PO SCH (09:58)
[2022-09-06] MEDS: Amiodarone 200 MG TAB PO SCH ×2 (09:58→21:12)
[2022-09-06] MEDS: Pantoprazole 40 MG VIAL IVP SCH ×2 (09:59→20:55)
[2022-09-06] MEDS: Lactated Ringer's 1,000 ML IV SCH (10:00)
[2022-09-06] MEDS: Budesonide 0.5 MG/2 ML NEB NEB SCH ×2 (11:41→22:50)
[2022-09-06] MEDS: Vancomycin HCl 1 GM in Sodium Chloride 0.9% 250 ML 250 ML IVPB SCH ×2 (12:39→20:55)
[2022-09-06 13:54] LABS: Hemoglobin 8.4 g/dL (13.5-17.5); Platelet Count 360 10x3/uL (150-450)
[2022-09-06] MEDS: QUEtiapine 25 MG TAB PO SCH (21:12)
[2022-09-06] MEDS: Tamsulosin HCl 0.4 MG CAP PO SCH (21:13)
[2022-09-07] MEDS: Lactated Ringer's 1,000 ML IV SCH (00:15)
[2022-09-07] MEDS: Cefepime 2 GM in Sodium Chloride 0.9% 100 ML IVPB SCH (00:22)
[2022-09-07] MEDS: Ipratropium/Albuterol 3 ML NEB NEB SCH ×2 (02:10→09:48)
[2022-09-07 04:09] LABS: Magnesium 1.4 mg/dL (1.6-2.6)
[2022-09-07] MEDS: Magnesium 2 GM/50 ML(in water) 2 GM in Premix Bag 1 BAG IVPB SCH ×2 (06:06→08:33)
[2022-09-07] MEDS: Budesonide 0.5 MG/2 ML NEB NEB SCH (07:45)
[2022-09-07] MEDS ORDERED: Sodium Chloride 0.9% 250 ML 250 ML ONE (08:30)
[2022-09-07 10:38] VITALS: BP 181/80; TEMP 98.1
[2022-09-07] MEDS: Amiodarone 200 MG TAB PO SCH (11:18)
[2022-09-07] MEDS: Pantoprazole 40 MG VIAL IVP SCH (11:18)
[2022-09-07] MEDS: risperiDONE 0.5 MG TAB PO SCH (11:18)
== END 2022-09-07 12:10 | disposition hospice, home (50) | DRG 871 ==
LOC: CSHERS 17:19 → CSHTELE 20:34
PROVIDERS: ADMIT Family Medicine; ATTEND Internal Medicine
PROC: 4A033R1 Measurement of Arterial Saturation, Peripheral, Percutaneous Approach (ICD-10-PCS; 2022-09-04)
PROC: 3E03329 Introduction of Other Anti-infective into Peripheral Vein, Percutaneous Approach (ICD-10-PCS; 2022-09-04)
PROC: 0T9B70Z Drainage of Bladder with Drainage Device, Via Natural or Artificial Opening (ICD-10-PCS; principal; 2022-09-05)
DX: A41.9 Sepsis, unspecified organism (principal); J18.9 Pneumonia, unspecified organism; J96.00 Acute respiratory failure, unspecified whether with hypoxia or hypercapnia; N39.0 Urinary tract infection, site not specified; T83.511A Infection and inflammatory reaction due to indwelling urethral catheter, initial encounter; E87.20 Acidosis, unspecified; G93.40 Encephalopathy, unspecified; F03.93 Unspecified dementia, unspecified severity, with mood disturbance; I10 Essential (primary) hypertension; R65.20 Severe sepsis without septic shock; J44.9 Chronic obstructive pulmonary disease, unspecified; E11.9 Type 2 diabetes mellitus without complications; Z66 Do not resuscitate; Z20.822 Contact with and (suspected) exposure to COVID-19; N40.0 Benign prostatic hyperplasia without lower urinary tract symptoms; E78.5 Hyperlipidemia, unspecified; I25.10 Atherosclerotic heart disease of native coronary artery without angina pectoris; D50.0 Iron deficiency anemia secondary to blood loss (chronic); L89.90 Pressure ulcer of unspecified site, unspecified stage; Z85.46 Personal history of malignant neoplasm of prostate; I25.2 Old myocardial infarction; Z90.49 Acquired absence of other specified parts of digestive tract; Z98.890 Other specified postprocedural states; Z88.1 Allergy status to other antibiotic agents; Z88.8 Allergy status to other drugs, medicaments and biological substances; Z79.82 Long term (current) use of aspirin; Z79.899 Other long term (current) drug therapy; Z79.84 Long term (current) use of oral hypoglycemic drugs
CPT/HCPCS: 36415; 36416; 36600; 70450; 71045; 80048; 80053; 80202; 81003; 81015; 82274; 82565; 82805; 83605; 83735; 83880; 84100; 84520; 85014; 85018; 85025; 85049; 85610; 85730; 86850; 86900; 86901; 87040; 87077; 87086; 87186; 93005; 94640; 94760; 94762; 96361; 96365; 96366; 96367; 97139; C9113; J0456; J0692; J0696; J1815; J1956; J3370; J3475; J3490; J7050; J7120; J7620; J7626